=== PATIENT | male | born 1945 | race Caucasian/White ===

== ENCOUNTER → 2019-03-02 16:19 | Outpatient (CLI) | payer MEDICARE, SELFPAY ==
[2019-03-02 18:02] LABS: Protein, Urine (Random) 72.8 mg/dL (<11.9); Protein:Creat Ratio 597 mg/g CRE (0-200)
[2019-03-02 18:03] LABS: Prothrombin Time (Protime)PT. 12.8 SECONDS (11.7-14.9)
[2019-03-02 18:04] LABS: Partial Thromboplast Time 29.1 Seconds (24.1-36.2)
[2019-03-06 21:08] LABS: Complement C3 89 mg/dL (82-167); Cytoplasmic Ab (C-ANCA) <1:20 titer (Neg:<1:20); PROEL- A/G Ratio 1.4 (0.7-1.7); PROEL- Albumin 3.7 g/dL (2.9-4.4); PROEL- Alpha-1 Globulin 0.2 g/dL (0.0-0.4); PROEL- Alpha-2 Globulin 0.7 g/dL (0.4-1.0); PROEL- Beta Globulin 0.9 g/dL (0.7-1.3); PROEL- Gamma Globulin 0.9 g/dL (0.4-1.8); PROEL- Globulin, Total 2.6 g/dL (2.2-3.9); PROEL- TOTAL PROTEIN 6.3 g/dL (6.0-8.5)
[2019-03-09 13:59] LABS: Perinuclear Ab (P-ANCA) <1:20 titer (Neg:<1:20)
== END ==
PROVIDERS: Family Provider Internal Medicine; PCP Internal Medicine; Referring Provider Internal Medicine Nephrology; Visit Provider Internal Medicine Nephrology
DX: Z01.818 Encounter for other preprocedural examination (principal); R80.9 Proteinuria, unspecified; Z79.01 Long term (current) use of anticoagulants
CPT/HCPCS: 36415; 82570; 84156; 84165; 85610; 85730; 86160; 86226; 86256; 87077; 87086; 87088

== ENCOUNTER 2023-12-05 08:49 | Observation (INO) | payer MEDICARE, SELFPAY ==
[2023-12-05] VITALS (7 sets, daily range): BP systolic 122–165; BP diastolic 67–108; PULSE 66–79; RESP 14–18; TEMP 36.4–36.7; O2SAT 95–99; BMI 22.5; BMI 23.4; BMI 22.6
--- NOTE | 2023-12-05 09:18 | EKG12_ITS ---
Test Reason : Blood Pressure : / mmHG Vent. Rate : 068 BPM Atrial Rate : 068 BPM P-R Int : 214 ms QRS Dur : 094 ms QT Int : 380 ms P-R-T Axes : 017 006 003 degrees QTc Int : 404 ms Sinus rhythm with 1st degree A-V block with frequent Premature ventricular complexes in a pattern of bigeminy Minimal voltage criteria for LVH, may be normal variant ( R in aVL ) Nonspecific ST and T wave abnormality Abnormal ECG Confirmed by Danny Villagomez ([id number]), manager editorial [employer] ([id number]) on 12/06/2023 10:17:32 AM Referred By: Confirmed By:Danny Villagomez
--- NOTE | 2023-12-05 09:20 | RAD_ITS ---
STUDY: X-RAY CHEST REASON FOR EXAM: Male, 78 years old. Chest pain. TECHNIQUE: Single frontal view of the chest. COMPARISON: None. FINDINGS: Mild hyperinflation. There is no demonstrated pleural abnormality. Borderline cardiomegaly. Normal mediastinum and madeline. Normal visualized pulmonary arteries. Aortic tortuosity with calcification. No abnormality of the visualized soft tissue structures of the upper abdomen. RAD/Chest 1 View (Portable) IMPRESSION: Borderline cardiomegaly with mild hyperinflation. No active or acute cardiopulmonary disease. Electronically Signed: Jorge Kay MD at 9:35 EDT ,
[2023-12-05 09:27] LABS: Absolute Lymphocyte Count 1.11 X10^3/uL (0.83-4.51); Basophil# 0.06 X10^3/uL; Basophil% 0.9 % (0-1); Eosinophil# 0.13 X10^3/uL; Eosinophils% 1.9 % (0-5); Hematocrit 39.5 % (40-54); Hemoglobin 13.6 g/dL (13.0-16.5); Lymphocyte # 1.11 X10^3/ul (0.83-4.51); Lymphocyte % 16.2 % (19-41); Mean Corp Hgb Conc 34.4 g/dL (32-36); Mean Corpuscular Hgb 32.7 pg (27.0-32.0); Mean Platelet Vol. 10.4 fl (6.2-12.0); Monocyte# 0.48 X10^3/uL; NRBC Flagged by Analyzer 0 % (0-5); Neutrophil # 5.02 X10^3/uL (2.7-7.7); Neutrophil % 73.4 % (47-70); Platelet Count 210 K/mm3 (150-450); RBC Distribution Width CV 12.3 % (11.6-14.6); RBC Distribution Width SD 43.1 fl (35.1-43.9); Red Blood Count 4.16 M/mm3 (4.6-6.2); White Blood Count 6.8 K/mm3 (4.4-11.0)
--- NOTE | 2023-12-05 09:50 | EX.ED.DYSGE1 ---
HPI History of Present Illness Chief Complaint: Dizziness Informant: patient Narrative Narrative: 78-year-old male presenting to the emergency room with intermittent lightheadedness and intermittent left arm pain. Symptoms have been present for the past 3 to 4 days. He states they may last a couple minutes and then resolved. He states he is a very active individual. He reports that he swims daily goes for a couple mile walk and also lift weights. He states he has not been experiencing any change in exercise tolerance, no chest pain or shortness of breath, no weight loss. He states that he feels a little bit lightheaded that may last for 2 minutes and then resolves. He began to think maybe he pulled a muscle in his left shoulder left upper arm but it has not been constant. Has not changed his ability to do his morning routines. Patient lives 6 months in [place] recently returned to [place] and has been working out in the yard. Patient states that after couple days he decided that he would get himself evaluated. He states that his poultry barn manager and his primary care doctor could not get him in until January so he came to emergency. He states I am 78 now I could probably have a heart attack at any time. You can never be too careful. Patient states he sees cardiology because he has frequent PVCs. He states that they are monitoring it [facility] Medical History Diabetes Hypertension Home Medications ?Medication ?Instructions ?Recorded ?Last Taken ?Type atorvastatin 40 mg tablet 40 mg PO QHS CHOLESTEROL 12/05/23 12/04/23 History calcium carbonate 600 mg-vitamin 1 tab PO DAILY SUPPLEMENT 12/05/23 12/05/23 History D3 10 mcg (400 unit) tablet (Calcium 600 + D(3)) lisinopril 10 mg tablet 10 mg PO DAILY BLOOD PRESSURE 12/05/23 12/05/23 History metformin 500 mg tablet 500 mg PO BID DIABETES 12/05/23 12/05/23 History multivitamin (Daily Multi-Vitamin 1 tab PO DAILY SUPPLEMENT 12/05/23 12/05/23 History tablet) Allergy/AdvReac Type Severity Reaction Status Date / Time No Known Allergies Allergy Verified 12/05/23 08:50 Social History Smoking Status: Never smoker ROS ROS ED ROS Narrative Intermittent lightheadedness Constitutional Constitutional ED: Denies chills, fever(s) or weight loss Eyes Eyes: Denies change in vision or diplopia ENT ENT ED: Denies ear pain, rhinorrhea or sore throat Cardiovascular Cardiovascular: Denies chest pain, orthopnea, palpitations or racing heartbeat Respiratory/Chest Respiratory/Chest: Denies cough, dyspnea or orthopnea Gastrointestinal Gastrointestinal: Denies abdominal pain, diarrhea, nausea or vomiting Genitourinary Genitourinary ED: Reports other Details: Intermittent left shoulder left arm achiness ; Denies dysuria, hematuria or urinary frequency Musculoskeletal Musculoskeletal: Denies arthralgias or myalgias Integumentary Denies abscess or rash Neurologic Neurologic: Denies headache(s) or weakness Psychiatric Psychiatric: Denies anxiety, depression, suicidal ideation or suicidal thoughts Endocrine Endocrinology: Denies polydipsia, polyphagia or polyuria Allergic/Immunologic Allergic/Immunologic ED: Denies mouth swelling, tongue swelling or urticaria EXAM Physical Exam Const Vital Signs: 12/05/23 08:50 12/05/23 09:19 12/05/23 09:35 Temperature 98 F Temperature Source Temporal Pulse Rate 78 Respiratory Rate 14 Respiratory Effort Normal Non-Labored Respiratory Pattern Normal Blood Pressure 146/88 H Blood Pressure Mean 107 Pulse Ox 99 98 Oxygen Delivery Method Room Air Room Air 12/05/23 10:50 12/05/23 11:45 Temperature Temperature Source Pulse Rate 66 71 Respiratory Rate 14 18 Respiratory Effort Respiratory Pattern Blood Pressure 122/67 H 165/85 H Blood Pressure Mean 85 111 Pulse Ox 95 96 Oxygen Delivery Method Room Air Room Air Positive well nourished and well developed General Appearance ED: well developed HEENT Reports normocephalic, head/scalp atraumatic and moist mucous membranes Eyes PERRL and EOMs intact bilaterally Neck no lymphadenopathy, supple and no JVD Chest Wall inspection of chest normal and palpation of chest normal Resp normal respiratory effort and clear to auscultation bilaterally Cardio regular rate, regular rhythm and no murmurs GI normal to inspection, nondistended, normoactive bowel sounds and non-tender Palpation: soft Back/Spine no CVA tenderness and normal ROM Extremity normal to inspection Extremity Narrative: There is no tenderness to palpation of the left upper posterior arm or scapular region. Full painless range of motion. General Extremety ED: Negative for edema General Extremity: Negative for edema Neuro oriented x3 and CN's II-XII intact bilaterally Neuro Narrative: Normal finger-nose heel talbot NIH 0 Sensorium / Orientation: alert Motor Exam: strength 5/5 throughout Psych mental status grossly normal Mood & Affect: Negative for depressed or tearful Skin no rashes or lesions noted and no wounds MDM MDM MDM Narrative Medical decision making narrative: CBC with a hemoglobin of 13.6 and platelet count of 210. Creatinine is 0.97. Initial troponin 166. My independent interpretation of the chest x-ray is no acute process. Patient received aspirin. I spoke with poultry barn manager Dr. Danny Villagomez. Plan will be to admit the patient to the hospital for further evaluation. Will be obtaining a second cardiac enzyme test in the next few minutes. I think is most likely to be cardiac in nature as opposed to a pulmonary embolism which I think is less likely given how intermittent this is. He is currently asymptomatic. I do not believe he has dissection based on the normal mediastinal silhouette and his symptoms. History & Record Review Discussion w/independent historian: Patient Lab Data Attestation: I reviewed the patient's lab results. Labs: Laboratory Results - last 24 hr 12/05/23 09:13 WBC 6.8 RBC 4.16 L Hgb 13.6 Hct 39.5 L MCV 95.0 H MCH 32.7 H MCHC 34.4 RDW Std Deviation 43.1 RDW Coeff of Paco 12.3 Plt Count 210 MPV 10.4 Immature Gran % (Auto) 0.600 Neut % (Auto) 73.4 H Lymph % (Auto) 16.2 L [place]cl[place] % (Auto) 7.0 Eos % (Auto) 1.9 Baso % (Auto) 0.9 Absolute Neuts (auto) 5.0 Absolute Lymphs (auto) 1.11 Nucleated RBC % 0 Sodium 137 Potassium 4.2 Chloride 105 Carbon Dioxide 25.0 Anion Gap 7 BUN 17 Creatinine 0.97 Estim Creat Clear Calc 70.00 Est GFR (MDRD) Af Amer 96 Est GFR (MDRD) Non-Af 80 BUN/Creatinine Ratio 17.5 Glucose 161 H Calcium 9.0 Troponin I High Sens 166 H* Radiography Diagnostic Testing: Clinical Impression(s) from Imaging Studies Chest X-Ray 12/05/23 09:20 IMPRESSION: Borderline cardiomegaly with mild hyperinflation. No active or acute cardiopulmonary disease. Electronically Signed: Jorge Kay MD at 9:35 EDT , EKG Initial EKG: Attestation: I personally reviewed and interpreted this EKG as follows: Comments: Sinus rhythm with a first-degree AV block and a ventricular rate of 68 bpm. Noted PVCs. Differential Diagnosis Chest pain/SOB: pulmonary embolism, ACS, pneumothorax, pneumonia, aortic dissection and CHF Management Discussion w/another healthcare provider: Hospitalist (Po) and Cafe [employer] Restaurant Manager (Dahlia (Cardiology)) Discharge Plan Dx/Rx/DC Orders Clinical Impression: Episodic lightheadedness, Arm pain, left, Elevated troponin Disposition Disposition: Acute Care Hospital [facility]
[2023-12-05 09:57] LABS: Anion Gap 7 (5-15); BUN 17 mg/dL (7-18); BUN/Creat Ratio 17.5 RATIO (10-20); Chloride 105 mmol/L (98-107); Creatinine, Serum 0.97 mg/dL (0.70-1.30); EST Glomerular Filtration Rate 80 mL/min (>60); Est Glom Filt Rate - Afr Amer 96 mL/min (>60); Glucose 161 mg/dL (74-106); Potassium 4.2 mmol/L (3.5-5.1); Sodium Level 137 mmol/L (136-145); Troponin-I HS (w/2H Reflex) 166 pg/mL (3.0-78.0)
[2023-12-05 11:24] LABS: Reflex Troponin-HS? (from REC) Y
--- NOTE | 2023-12-05 11:27 | PCM.HP.STD ---
HPI - General General Date of Admission: 12/05/23 HPI Narrative JORGE CONTRERAS, is a 78 M who presents to the hospital with intermittent left arm pain as well as lightheadedness. He says that last night he woke up from sleep with left arm pain and lightheadedness. And then he went back to sleep and it resolved. This morning he woke up and said that he should coming to the ER because of his age to have heart attack can happen at any time and he knows that one of the signs can be left arm pain. EKG was nonischemic however he did have a troponin of 166 on admission that did go up to 172. No significant family history of heart disease and he is not a smoker and he is a very active individual who lifts weights every day as well as swims and does other physical activity. He states he has never had any issues like this before and never had a stress test or heart cath in the past, but has been noticing this left arm pain intermittently for the last week or so. [facility] Medical History (Updated 12/05/23 @ 11:[address] Arcenio Al DO) Diabetes Hypertension Home Medications ?Medication ?Instructions ?Recorded ?Last Taken ?Type atorvastatin 40 mg tablet 40 mg PO QHS CHOLESTEROL 12/05/23 12/04/23 History calcium carbonate 600 mg-vitamin 1 tab PO DAILY SUPPLEMENT 12/05/23 12/05/23 History D3 10 mcg (400 unit) tablet (Calcium 600 + D(3)) lisinopril 10 mg tablet 10 mg PO DAILY BLOOD PRESSURE 12/05/23 12/05/23 History metformin 500 mg tablet 500 mg PO BID DIABETES 12/05/23 12/05/23 History multivitamin (Daily Multi-Vitamin 1 tab PO DAILY SUPPLEMENT 12/05/23 12/05/23 History tablet) Allergy/AdvReac Type Severity Reaction Status Date / Time No Known Allergies Allergy Verified 12/05/23 08:50 Family History (Updated 12/05/23 @ 14:[address] Tommy Fontenot MD) Other Diabetes Surgical History (Updated 12/05/23 @ 14:[address] Tommy Fontenot MD) History of tonsillectomy Social History Smoking Status: Never smoker ROS Constitutional Constitutional: Denies chills, fatigue, fever(s) or malaise Eyes Eyes: Denies blurry vision ENT HEENT: Denies headache(s) or nasal discharge Cardiovascular Cardiovascular: Reports lightheadedness; Denies chest pain, dyspnea on exertion or syncope Respiratory/Chest Respiratory/Chest: Denies cough, shortness of breath at rest or shortness of breath with exertion Gastrointestinal Gastrointestinal: Denies constipation, diarrhea, nausea or vomiting Genitourinary Genitourinary: Denies dysuria Musculoskeletal Musculoskeletal: Reports other Details: Left arm pain Neurologic Neurologic: Denies focal weakness, numbness or tremor(s) Psychiatric Psychiatric: Denies anxiety or depression Vital Signs Vital Signs Vital Signs: 12/05/23 08:50 12/05/23 09:19 12/05/23 09:35 Temperature 98 F Temperature Source Temporal Pulse Rate 78 Respiratory Rate 14 Respiratory Effort Normal Non-Labored Respiratory Pattern Normal Blood Pressure 146/88 H Blood Pressure Mean 107 Pulse Ox 99 98 Oxygen Delivery Method Room Air Room Air 12/05/23 10:50 Temperature Temperature Source Pulse Rate 66 Respiratory Rate 14 Respiratory Effort Respiratory Pattern Blood Pressure 122/67 H Blood Pressure Mean 85 Pulse Ox 95 Oxygen Delivery Method Room Air Weight Weight: 173 lb 1.006 oz Body Mass Index (BMI) 23.4 Physical Exam Narrative General: Alert, Oriented x3, Cooperative, No apparent distress HEENT: Atraumatic, PERRLA, EOMI, Normocephalic Oral: Moist Mucosa Neck: Supple, No JVD Lungs: Clear to auscultation, Normal air movement, No rhonchi, No wheeze, No rales Cardiovascular: Regular rate, Regular Rhythm, Normal S1, Normal S2, No murmurs Abdomen: Soft, Non Tender, Non-Distended, No Hepato-splenomegaly Extremities: No edema, Capillary Refill Less than 3 Seconds Skin: No rashes, No breakdown Musculoskeletal: No Tenderness to Palpation of Joints or Extremities Neurological: No focal neurological deficits, Motor Exam 5/5 strength throughout, Sensory exam intact to light touch and pain Psych/Mental Status: Normal Affect, Appropriate Results Lab / Micro Data 12/05/23 09:13 12/05/23 09:13 Labs: Laboratory Results - last 24 hr 12/05/23 09:13: WBC 6.8, RBC 4.16 L, Hgb 13.6, Hct 39.5 L, MCV 95.0 H, MCH 32.7 H, MCHC 34.4, RDW Std Deviation 43.1, RDW Coeff of Paco 12.3, Plt Count 210, MPV 10.4, Immature Gran % (Auto) 0.600, Neut % (Auto) 73.4 H, Lymph % (Auto) 16.2 L, [place] % (Auto) 7.0, Eos % (Auto) 1.9, Baso % (Auto) 0.9, Absolute Neuts (auto) 5.0, Absolute Lymphs (auto) 1.11, Nucleated RBC % 0, Sodium 137, Potassium 4.2, Chloride 105, Carbon Dioxide 25.0, Anion Gap 7, BUN 17, Creatinine 0.97, Estim Creat Clear Calc 70.00, Est GFR (MDRD) Af Amer 96, Est GFR (MDRD) Non-Af 80, BUN/Creatinine Ratio 17.5, Glucose 161 H, Calcium 9.0, Troponin I High Sens 166 H* Imaging Radiology Impression Chest X-Ray 12/05/23 09:20 IMPRESSION: Borderline cardiomegaly with mild hyperinflation. No active or acute cardiopulmonary disease. Electronically Signed: Jorge Kay MD at 9:35 EDT Reading Location ID and State: [facility] / [place] , Service support , Assessment & Plan Assessment/Plan (1) Elevated troponin: (2) Arm pain, left: (3) Episodic lightheadedness: PLAN: Plan 1. Left arm pain with an elevated troponin/essential HTN/HLD ? Will obtain serial troponins ? If there is no significant increase in his troponins we will proceed with stress test ? He is already on Lipitor and lisinopril at home which we will continue ? He did receive aspirin in the ER ? We will monitor his blood pressures and make adjustments as necessary 2. DM2 ? He takes metformin which we will hold in case there is a need for heart cath ? Sliding scale insulin ? Accu-Cheks ACHS ? We will monitor and make adjustments as necessary DVT: Ambulation 75 minutes was spent on direct patient care, including documentation as well as chart review and collaboration with colleagues Charges/Coding Visit Charges Inpatient E&M: 34175 Init Hosp L3
[2023-12-05] MEDS: Aspirin 325 MG Tablet PO (11:44)
--- NOTE | 2023-12-05 11:59 | ED.RN ---
LAB CALLED CRITICAL OF TROPONIN 172. DR CAMPOS
[2023-12-05 12:03] LABS: Troponin-I HS 172 pg/mL (3.0-78.0)
[2023-12-05 16:36] LABS: Bedside Glucose 94 mg/dL (74-106)
[2023-12-05 16:43] LABS: Troponin-I HS 181 pg/mL (3.0-78.0)
[2023-12-05] MEDS: Atorvastatin Calcium 40 MG Tablet PO (20:45)
[2023-12-05 21:06] LABS: Bedside Glucose 185 mg/dL (74-106)
[2023-12-05] MEDS: Insulin Lispro 100 UNIT/ML INSULN.PEN SC (22:21)
[2023-12-06 02:38] VITALS: BP 121/80; PULSE 59; RESP 14; TEMP 36.6; O2SAT 98
--- NOTE | 2023-12-06 05:55 | EKG12_ITS ---
Test Reason : AM EKG Blood Pressure : / mmHG Vent. Rate : 058 BPM Atrial Rate : 058 BPM P-R Int : 232 ms QRS Dur : 082 ms QT Int : 426 ms P-R-T Axes : 047 047 009 degrees QTc Int : 418 ms Sinus bradycardia with 1st degree A-V block with occasional Premature ventricular complexes Nonspecific ST abnormality Abnormal ECG When compared with ECG of 05-DEC-2023 09:02, MANUAL COMPARISON REQUIRED, DATA IS UNCONFIRMED Confirmed by Danny Villagomez ([id number]), technical editor [employer] MOSS ([id number]) on 12/06/2023 10:22:56 AM Referred By: MARYANNE Confirmed By:Danny Villagomez
[2023-12-06 06:20] VITALS: BP 136/65; PULSE 58; RESP 14; TEMP 36.4; O2SAT 96
[2023-12-06] MEDS: Lisinopril 10 MG Tablet PO (06:22)
[2023-12-06 06:53] LABS: Absolute Lymphocyte Count 1.15 X10^3/uL (0.83-4.51); Absolute Neutrophil Count 3.7 X10^3/uL (2.0-7.7); Basophil# 0.03 X10^3/uL; Basophil% 0.5 % (0-1); Eosinophil# 0.21 X10^3/uL; Eosinophils% 3.8 % (0-5); Hematocrit 38.2 % (40-54); Hemoglobin 13.4 g/dL (13.0-16.5); Lymphocyte # 1.15 X10^3/ul (0.83-4.51); Mean Corp Hgb Conc 35.1 g/dL (32-36); Mean Corpuscular Hgb 33.3 pg (27.0-32.0); Mean Corpuscular Volume 94.8 fL (80-94); Mean Platelet Vol. 10.9 fl (6.2-12.0); Monocyte# 0.39 X10^3/uL; Monocyte% 7.1 % (0-10); NRBC Flagged by Analyzer 0 % (0-5); Neutrophil # 3.67 X10^3/uL (2.7-7.7); Neutrophil % 67.2 % (47-70); Platelet Count 207 K/mm3 (150-450); RBC Distribution Width CV 12.1 % (11.6-14.6); RBC Distribution Width SD 42.7 fl (35.1-43.9); Red Blood Count 4.03 M/mm3 (4.6-6.2); White Blood Count 5.5 K/mm3 (4.4-11.0)
[2023-12-06 08:12] LABS: Bedside Glucose 127 mg/dL (74-106)
[2023-12-06 08:51] LABS: Anion Gap 8 (5-15); BUN 16 mg/dL (7-18); BUN/Creat Ratio 20.5 RATIO (10-20); Calcium,Total 9.1 mg/dL (8.5-10.1); Chloride 106 mmol/L (98-107); Cholesterol 105 mg/dL (200); Creatinine, Serum 0.78 mg/dL (0.70-1.30); EST Glomerular Filtration Rate 102 mL/min (>60); Est Glom Filt Rate - Afr Amer 124 mL/min (>60); Estimated Creatinine Clearance 82.91 ml/min; Glucose 130 mg/dL (74-106); High Density Lipoprotein 58 mg/dL; Potassium 4.3 mmol/L (3.5-5.1); Sodium Level 137 mmol/L (136-145); Triglycerides 102 mg/dL; Very Low Density Lipoprotein 20 mg/dL (5-40)
[2023-12-06 12:20] VITALS: BP 145/78; PULSE 61; RESP 16; TEMP 36.7; O2SAT 98
[2023-12-06 12:39] LABS: Bedside Glucose 177 mg/dL (74-106)
--- NOTE | 2023-12-06 13:31 | STRESSREP_ITS ---
Stress Test Report Date: 12/06/2023 Procedure: Pharmacologic stress nuclear imaging study Indications: Chest pain Consent: Per the patient Procedure: The patient underwent pharmacologic (Regadenoson) evaluation with a peak heart rate of 92 beats per minute (64%predicted maximal heart rate) and a peak blood pressure of 142/70 mmHg. The baseline ECG demonstrated normal sinus rhythm, frequent PVCs. EKG during lexiscan infusion revealed no significant ischemic changes. EKG post infusion revealed no significant ischemic changes [There were no cardiac dysrhythmias pretest, during pharmacologic infusion, or recovery]. [There was no complaint of chest discomfort during pharmacologic infusion or recovery]. The examination was discontinued secondary to completion of protocol. Impression: 1. Lexiscan stress test test is negative for Lexiscan infusion induced EKG changes of ischemia. 2. Lexiscan stress test test is negative for Lexiscan infusion induced chest pain. 3. Results of the nuclear portion of the test is as below Myocardial perfusion imaging study: Technique: The patient was injected with 12 millicuries of technetium 99m Cardiolite and subsequently rest SPECT Cardiolite nuclear imaging was obtained in the horizontal long, vertical long, and short axis views. The patient underwent pharmacologic [Regadenoson 0.4mg] evaluation. Please see above for details. The patient was injected with 34.3 millicuries of technetium 99m Cardiolite and subsequently stress SPECT Cardiolite nuclear imaging was obtained in the ho rizontal long, vertical long, and short axis views. A gated Cardiolite study at peak stress was obtained. Interpretation: Rest and stress SPECT Cardiolite nuclear imaging status post realignment, normalization, and attenuation correction demonstrate no evidence of significant ischemia. Ejection fraction was not assessed Impression: 1. There is no evidence of significant ischemia. This note was generated with LeadPointation software. It may contain incorrect words, spelling, and punctuation that were not noted in checking the note before signing.
--- NOTE | 2023-12-06 14:06 | DCINST_ITS ---
Discharge Instructions Diet Discharge Diet: Low fat / Low cholesterol and Carb Control Diet Activity Discharge Activity: Return to Normal Activity Dressing / Incision Call your doctor if you observe: Fever of 101 or Higher, Shortness of breath, Dizziness, Fainting spells, Swelling in the ankles, Chest pain and Increased palpitations (irregular heartbeat) Follow Up Care Test Results: Test results from this visit will be discussed in further detail at your follow- up appointment, if applicable. Discharge Plan Admission Admit Date/Time: 12/05/23 11:28 Attending Provider: Tommy Fontenot Primary Care Provider: Brett Dobson Instructions Additional Instructions / Restrictions: Follow-up with your PCP as an outpatient and can likely obtain an echo as an outpatient as well. Also follow-up with her semiconductors wafer breaker as previously planned. Discharge Orders/Prescriptions Prescriptions: New aspirin 81 mg capsule 81 mg PO DAILY Qty: 30 0RF Continued atorvastatin 40 mg tablet 40 mg PO QHS lisinopril 10 mg tablet 10 mg PO DAILY metformin 500 mg tablet 500 mg PO BID multivitamin [Daily Multi-Vitamin] Tablet 1 tab PO DAILY calcium carbonate-vitamin D3 [Calcium 600 + D(3)] 600 mg-10 mcg (400 unit) tablet 1 tab PO DAILY Referrals / Follow Up: Brett Dobson MD [Primary Care Provider] - Within 1 Week Disposition Disposition (needs filled in before D/C Order can be placed): Home, Self Care
--- NOTE | 2023-12-06 14:08 | DS.PCM_ITS ---
Providers Date of Admission: 12/05/23 Primary Care Physician: Dr. Brett Dobson MD Reason For Visit: DEMAND ISCHEMIA, CHEST PAIN R/O Diagnosis Discharge Diagnosis (1) Elevated troponin: Status: Acute Code(s): R79.89 - Other specified abnormal findings of blood chemistry (2) Arm pain, left: Status: Acute Code(s): M79.602 - Pain in left arm (3) Episodic lightheadedness: Status: Acute Code(s): R42 - Dizziness and giddiness Medications at Discharge Home Medications atorvastatin 40 mg tablet 40 mg PO QHS CHOLESTEROL 12/05/23 calcium carbonate 600 mg-vitamin D3 10 mcg (400 unit) tablet (Calcium 600 + D(3)) 1 tab PO DAILY SUPPLEMENT 12/05/23 lisinopril 10 mg tablet 10 mg PO DAILY BLOOD PRESSURE 12/05/23 metformin 500 mg tablet 500 mg PO BID DIABETES 12/05/23 multivitamin (Daily Multi-Vitamin tablet) 1 tab PO DAILY SUPPLEMENT 12/05/23 aspirin 81 mg capsule 81 mg PO DAILY #30 caps 12/06/23 Hospital Course Operations None Procedures Nuclear stress test Summary of Care Provided Minutes Spent on Discharge: 35 Hospital Course: Per HPI: LAZARO CONTRERAS, is a 78 M who presents to the hospital with intermittent left arm pain as well as lightheadedness. He says that last night he woke up from sleep with left arm pain and lightheadedness. And then he went back to sleep and it resolved. This morning he woke up and said that he should coming to the ER because of his age to have heart attack can happen at any time and he knows that one of the signs can be left arm pain. EKG was nonischemic however he did have a troponin of 166 on admission that did go up to 172. No significant family history of heart disease and he is not a smoker and he is a very active individual who lifts weights every day as well as swims and does other physical activity. He states he has never had any issues like this before and never had a stress test or heart cath in the past, but has been noticing this left arm pain intermittently for the last week or so. Hospital Course: 1. Left arm pain with an elevated troponin/essential HTN/HLD?78-year-old male who lives part of the year in [place] and part of the year in [place] presented to the hospital because of left arm pain. Denies any chest pain or increased shortness of breath. He had arm pain on and off for the last couple of days prior to admission and also had intermittent lightheadedness but no shortness of breath or chest pain. EKG was nonischemic and initial troponin was 166 and peaked at 181. We proceeded with stress test today and he was found to have a nonischemic study unfortunately EF could not be assessed. Will plan for discharged on aspirin and have him follow-up with his primary care doctor as well as his loss control representative for any further outpatient assessment including echo if deemed necessary. We also discussed that if he develops symptoms again or different symptoms to present back to the hospital. He is a fairly active individual at baseline this was a fairly atypical presentation and has no cardiac history in his family. I discussed with him the plan for discharge today and he expressed understanding of the risk and benefits of going home and would like to go home today. 2. Type 2 diabetes chronic medical condition which complicates his care. His home medications were continued where appropriate Physical Exam Narrative General: Alert, Oriented x3, Cooperative, No apparent distress HEENT: Atraumatic, PERRLA, EOMI, Normocephalic Oral: Moist Mucosa Neck: Supple, No JVD Lungs: Clear to auscultation, Normal air movement, No rhonchi, No wheeze, No rales Cardiovascular: Regular rate, Regular Rhythm, Normal S1, Normal S2, No murmurs Abdomen: Soft, Non Tender, Non-Distended, No Hepato-splenomegaly Extremities: No edema, Capillary Refill Less than 3 Seconds Skin: No rashes, No breakdown Musculoskeletal: No Tenderness to Palpation of Joints or Extremities Neurological: No focal neurological deficits, Motor Exam 5/5 strength throughout, Sensory exam intact to light touch and pain Psych/Mental Status: Normal Affect, Appropriate Weight / BMI Weight Weight: 167 lb 1.766 oz Body Mass Index (BMI) 22.6 ABG / Lab / Microbiology Data 12/06/23 05:55 12/06/23 05:55 Laboratory: Laboratory Results - last 24 hr 12/05/23 15:55: Troponin I High Sens 181 H* 12/05/23 16:17: POC Glucose 94 12/05/23 20:42: POC Glucose 185 H 12/06/23 05:55: WBC 5.5, RBC 4.03 L, Hgb 13.4, Hct 38.2 L, MCV 94.8 H, MCH 33.3 H, MCHC 35.1, RDW Std Deviation 42.7, RDW Coeff of Paco 12.1, Plt Count 207, MPV 10.9, Immature Gran % (Auto) 0.400, Neut % (Auto) 67.2, Lymph % (Auto) 21.0, [place] % (Auto) 7.1, Eos % (Auto) 3.8, Baso % (Auto) 0.5, Absolute Neuts (auto) 3.7, Absolute Lymphs (auto) 1.15, Nucleated RBC % 0, Sodium 137, Potassium 4.3, Chloride 106, Carbon Dioxide 23.0, Anion Gap 8, BUN 16, Creatinine 0.78, Estim Creat Clear Calc 82.91, Est GFR (MDRD) Af Amer 124, Est GFR (MDRD) Non-Af 102, B UN/Creatinine Ratio 20.5 H, Glucose 130 H, Calcium 9.1, Triglycerides 102, Cholesterol 105, LDL Cholesterol 27, VLDL Cholesterol 20, HDL Cholesterol 58 12/06/23 06:16: POC Glucose 127 H 12/06/23 12:22: POC Glucose 177 H D/C Instructions Discharge Diet: Low fat / Low cholesterol and Carb Control Diet Call your doctor if you observe: Fever of 101 or Higher, Shortness of breath, Dizziness, Fainting spells, Swelling in the ankles, Chest pain and Increased palpitations (irregular heartbeat) Meaningful Use Info Meaningful Use Meaningful Use Diagnoses (Choose all that apply): None applicable Ischemic Stroke Statin Dosing Therapy Reference: STATIN DOSE THERAPY REFERENCE: * Patients > 75 years receive moderate or high dose statin therapy. * Patients 75 years or YOUNGER should receive HIGH intensity statin dose unless contraindicated. You will be required to document reason for non-treatment if statin daily dose does not meet guidelines. HIGH DOSE STATIN THERAPY DAILY Atorvastatin > than or = to 40 mg Rosuvastatin > than or = to 20 mg Amlodipine + Atorvastatin > than or = to 2.5/40 mg Ezetimibe + Simvastatin 10/80 mg Simvastatin 80mg Discharge Plan Admission Admit Date/Time: 12/05/23 11:28 Attending Provider: Tommy Fontenot Primary Care Provider: Brett Dobson Instructions Additional Instructions / Restrictions: Follow-up with your PCP as an outpatient and can likely obtain an echo as an outpatient as well. Also follow-up with her loss control representative as previously planned. Discharge Orders/Prescriptions Prescriptions: New aspirin 81 mg capsule 81 mg PO DAILY Qty: 30 0RF Continued atorvastatin 40 mg tablet 40 mg PO QHS lisinopril 10 mg tablet 10 mg PO DAILY metformin 500 mg tablet 500 mg PO BID multivitamin [Daily Multi-Vitamin] Tablet 1 tab PO DAILY calcium carbonate-vitamin D3 [Calcium 600 + D(3)] 600 mg-10 mcg (400 unit) tablet 1 tab PO DAILY Referrals / Follow Up: Brett Dobson MD [Primary Care Provider] - Within 1 Week Disposition Disposition (needs filled in before D/C Order can be placed): Home, Self Care Charges/Coding Visit Charges Inpatient E&M: 76928 Disch Hosp >30min
--- NOTE | 2023-12-06 14:58 | CASEMGMT ---
Patient has order for discharge. RN CM in to discuss needs at discharge. Patient denies needs or help at discharge. Patient had no further questions or concerns.
--- NOTE | 2023-12-06 15:24 | CHAPLAIN ---
Type of Pastoral Visit _x__ Initial Visit ___ Follow-up Visit ___ On-call Visit ___ General Patient Visit ___ Spiritual Assessment ___ Family Conference ___ Bereavement ___ Rapid Response ___ Code Blue ___ Other (describe below) Pastoral Care Referral From _x__ Patient ___ Family ___ Nurse ___ Physician ___ Environmental Engineering Manager ___ Cull Grader ___ Other (describe below) Sacrament/Intervention __x_ Active listening ___ Anointing ___ Zoroastrian ___ Bereavement ___ Communion ___ Teresa exploration ___ ___ Life review ___ Prayer ___ Reconciliation ___ Sacrament of Sick ___ Supportive presence ___ Wedding ___ Other (describe below) Pastoral Comments patient and spouse are in the room; pt is quietly lying still in bed; pt says that he is waiting on test results, that his weekend plans of golfing have been interrupted, and is just waiting to see what the doctor wants;
[2023-12-06 15:30] VITALS: BP 138/62; PULSE 64; RESP 14; TEMP 36.4; O2SAT 98
== END 2023-12-06 14:08 | disposition home or self-care (01) ==
LOC: ED 12:04 → PCU 12:16
PROVIDERS: Admitting Provider Family Medicine; Emergency Provider Emergency Medicine; PCP Internal Medicine; Visit Provider Family Medicine
DX: R42 Dizziness and giddiness (principal); E11.9 Type 2 diabetes mellitus without complications; R79.89 Other specified abnormal findings of blood chemistry; I10 Essential (primary) hypertension; I49.3 Ventricular premature depolarization; M79.602 Pain in left arm; Z79.84 Long term (current) use of oral hypoglycemic drugs; Z79.899 Other long term (current) drug therapy; R94.31 Abnormal electrocardiogram [ECG] [EKG]; I44.0 Atrioventricular block, first degree
CPT/HCPCS: 36415; 71045; 78452; 80048; 80061; 82962; 84484; 85025; 93005; 93017; 99221; 99285; A9500; J7030; A4216; G0378; J2785